=== PATIENT | female | born 1970 | race African-American/Black ===

== ENCOUNTER → 2021-01-24 00:10 | Outpatient (CLI) | payer OTHER, SELFPAY ==
[2021-01-24 20:45] LABS: SARS-CoV-2 RNA PCR Negative
== END ==
PROVIDERS: PCP Internal Medicine; Visit Provider Internal Medicine Gastroenterology
DX: Z01.812 Encounter for preprocedural laboratory examination (principal); Z20.822 Contact with and (suspected) exposure to COVID-19
CPT/HCPCS: C9803; U0003; U0005

== ENCOUNTER 2021-01-27 00:22 | Day surgery (SDC) | payer OTHER, SELFPAY ==
[2021-01-17 13:42] VITALS: BMI 30.4
[2021-01-27 12:17] VITALS: BP 147/99; PULSE 117; RESP 16; TEMP 36.8; O2SAT 99
[2021-01-27] MEDS: LACTATED RINGERS 1,000 ML 150 ML IV CONT (12:26)
--- NOTE | 2021-01-27 13:05 | WPDANESEPPF ---
Anes - Initial Pre Proc Eval Procedure: Operation Date: 01/27/21 13:00 Proposed Procedures p Esophagogastroduodenoscopy - Roddy Masters MD Date/Time: 01/27/21 13:05 Surgeon: Roddy Masters MD Pre Op Diagnosis: Gastritis Patient Data Age: 50 Gender: F Height: 5 ft 7 in Weight: 86.8 kg Last Vital Signs Temp 98.2 F 01/27/21 12:17 Pulse 117 H 01/27/21 12:17 Resp 16 01/27/21 12:17 BP 147/99 H 01/27/21 12:17 Pulse Ox 99 01/27/21 12:17 Allergies Allergy/AdvReac Type Severity Reaction Status Date / Time erythromycin base Allergy Severe ITCHING, Verified 01/27/21 12:03 HIVES propoxyphene Allergy Severe ITCHING, Verified 01/27/21 12:03 HIVES, LIVER PROBLEMS oxycodone AdvReac Mild ITCHING Verified 01/27/21 12:03 Home Medications Medication Instructions Recorded Confirmed Type omeprazole 20 mg capsule,delayed 20 mg PO DAILY #90 cap 02/08/20 01/27/21 Rx release tramadol 50 mg tablet 50 mg PO Q6H PRN #120 tablet 12/28/20 01/27/21 Rx glatiramer [Copaxone] 40 mg SUBCUT 3XW 01/17/21 01/27/21 History hydrochlorothiazide 25 mg PO DAILY 01/27/21 01/27/21 History Patient hx anesthesia problems: none Family hx anesthesia problems: none PMFSH Past Medical History Medical History (Updated 01/27/21 @ 13:04 by Toño Garza MD) Esophageal reflux disease Essential (primary) hypertension Pure hypercholesterolemia Family History Family History Mother Patient's mother is in good health Father Patient's father is in good health Social History Social History Smoking status: Never smoker Second hand tobacco smoke exposure: No Alcohol intake: current Alcohol use details: DRINKS RARELY Living arrangements: with family Gender identity (if verbalized by the patient): Female Spiritual care concerns: No Anes - Eval Final PreProcedure Day of Procedure 01/27/21 13:05 Patient weight: obese Heart: regular rate and rhythm Lungs: clear to auscultation Airway: Mallampati scale class II Neurological: alert and oriented Last oral intake: >/= 8 hours ASA classification: III Emergent: no Anesthetic plan: proceed Anesthesia type and monitoring: general GIVS and standard monitoring Informed Consent: The patient's anesthetic plan and its attendant risks and benefits were discussed with the patient/family/POA. Questions were solicited and answers provided to the satisfaction of the patient/family/POA.
--- NOTE | 2021-01-27 13:08 | PM.HPGS ---
History of Present Illness History of Present Illness Consent: Risks, benefits, and alternatives have been discussed and questions answered. Patient agrees to proceed with procedure. Chief complaint: Gastritis Narrative: Evette Reyes is a 50 year old female epigastric pain better with omeprazole but symptom not gone, never had EGD Review of Systems Constitutional: Constitutional: Denies headache(s) and Denies weakness Eyes: Eyes: Denies blurry vision ENT: Reports Normal hearing present, Denies headache(s) and Denies neck pain Cardiovascular: Cardiovascular: Denies chest pain and Denies dyspnea Respiratory: Respiratory: Denies dyspnea Gastrointestinal: Gastrointestinal: Reports no additional gastrointestinal complaints Genitourinary: Genitourinary: Denies dysuria Musculoskeletal: Musculoskeletal: Denies neck pain Integumentary/Breasts: Skin/Breast: Denies dry skin Neurologic: Reports Normal hearing present, Denies headache(s) and Denies weakness Psychiatric: Psychiatric: Denies anxiety Endocrine: Endocrine: Denies change in body appearance Hematologic/Lymphatic: Hematologic/Lymphatic: Denies easy bleeding Allergic/Immunologic: Allergic/Immunologic: Denies urticaria PMFSH Past Medical History Medical History (Updated 01/27/21 @ 13:08 by Roddy Masters MD) Esophageal reflux disease Essential (primary) hypertension Pure hypercholesterolemia Family History Family History Mother Patient's mother is in good health Father Patient's father is in good health Social History Social History Smoking status: Never smoker Second hand tobacco smoke exposure: No Alcohol intake: current Alcohol use details: DRINKS RARELY Living arrangements: with family Gender identity (if verbalized by the patient): Female Spiritual care concerns: No Meds Home Medications and Allergies Home Medications Medication Instructions Recorded Confirmed Type omeprazole 20 mg capsule,delayed 20 mg PO DAILY #90 cap 02/08/20 01/27/21 Rx release tramadol 50 mg tablet 50 mg PO Q6H PRN #120 tablet 12/28/20 01/27/21 Rx glatiramer [Copaxone] 40 mg SUBCUT 3XW 01/17/21 01/27/21 History hydrochlorothiazide 25 mg PO DAILY 01/27/21 01/27/21 History Allergies Allergy/AdvReac Type Severity Reaction Status Date / Time erythromycin base Allergy Severe ITCHING, Verified 01/27/21 12:03 HIVES propoxyphene Allergy Severe ITCHING, Verified 01/27/21 12:03 HIVES, LIVER PROBLEMS oxycodone AdvReac Mild ITCHING Verified 01/27/21 12:03 Vital Signs Vital Signs - 24 hr 01/27/21 12:17 Temperature 98.2 F Pulse Rate 117 H Respiratory Rate 16 Blood Pressure 147/99 H Pulse Oximetry 99 Exam Const: General: comfortable and no acute distress HENMT: General nose exam: Normal nares present Eyes: General: appearance normal, both eyes and all related structures Neck: Neck: no JVD Resp: Auscultation: clear to auscultation bilaterally Cardio: Rate: regular rate Rhythm: regular rhythm GI: Inspection: non-distended GI Palp: Yes Soft to palpation Skin: General skin exam: normal color Neuro: General: gait normal Speech: normal speech Extrem: General: normal to inspection Psych: Mental Status: mental status grossly normal Assessment and Plan Assessment and plan (1) Esophageal reflux disease: Code(s): K21.9 - Gastro-esophageal reflux disease without esophagitis Status: Acute Assessment and Plan: egd with bx, on ppi
[2021-01-27] MEDS: BENZOCAINE (*SP) 60 ML SPRAY CAN (HURRICAINE) 1 SPRAY MUCOUS MEM (13:13)
[2021-01-27 13:20] VITALS: BP 155/96; PULSE 98; RESP 16; O2SAT 96
[2021-01-27 13:30] VITALS: BP 138/100; PULSE 94; RESP 18; O2SAT 97
[2021-01-27 13:40] VITALS: BP 142/99; PULSE 92; RESP 18; O2SAT 100
== END 2021-01-27 14:05 | disposition home or self-care (01) ==
PROVIDERS: PCP Internal Medicine; Visit Provider Internal Medicine Gastroenterology
PROC: 0DJ08ZZ Inspection of Upper Intestinal Tract, Via Natural or Artificial Opening Endoscopic (ICD-10-PCS; CPT 43235; principal; 2021-01-27 13:00)
DX: K21.9 Gastro-esophageal reflux disease without esophagitis (principal); K44.9 Diaphragmatic hernia without obstruction or gangrene; K29.50 Unspecified chronic gastritis without bleeding; I10 Essential (primary) hypertension; E78.00 Pure hypercholesterolemia, unspecified; E66.9 Obesity, unspecified; Z68.30 Body mass index [BMI] 30.0-30.9, adult
CPT/HCPCS: 43239; 87081; 88305; C9803; J2704; J7120; U0003; U0005

== ENCOUNTER 2022-11-26 07:39 | Outpatient (NON) | payer OTHER, SELFPAY | END 2022-11-26 07:40 | disposition home or self-care (01) | LOC: ANHLAB 11-27 07:41 | PROVIDERS: PCP Internal Medicine; Visit Provider Internal Medicine Gastroenterology | DX: K29.60 Other gastritis without bleeding (principal) | CPT/HCPCS: 88305 ==

== ENCOUNTER 2022-11-26 11:56 | Day surgery (SDC) | payer OTHER, SELFPAY ==
[2022-11-05 11:17] VITALS: BMI 30.7
[2022-11-14 12:03] VITALS: BMI 30.4
--- NOTE | 2022-11-26 12:15 | WPDANESEPPF ---
Anes - Initial Pre Proc Eval Procedure: Operation Date: 11/26/22 14:00 Proposed Procedures p Esophagogastroduodenoscopy - Roddy Masters MD Date/Time: 11/26/22 12:15 Surgeon: Roddy Masters MD Pre Op Diagnosis: Gerd Patient Data Age: 51 Gender: F Height: 1.7 m Weight: 88 kg Allergies Allergy/AdvReac Type Severity Reaction Status Date / Time erythromycin base Allergy Severe ITCHING, Verified 11/26/22 13:04 HIVES propoxyphene Allergy Severe ITCHING, Verified 11/26/22 13:04 HIVES, LIVER PROBLEMS oxycodone AdvReac Mild ITCHING Verified 11/26/22 13:04 Home Medications Medication Instructions Recorded Confirmed Type cyanocobalamin (vitamin B-12) 500 500 mcg PO DAILY #90 tabs 02/23/22 11/26/22 Rx mcg tablet ofatumumab 20 mg/0.4 mL 20 mg subcut MONTHLY 02/23/22 11/26/22 History subcutaneous pen injector (Kesimpta Pen) omeprazole 20 mg capsule,delayed 20 mg PO BID 1 month #60 caps 05/15/22 11/26/22 Rx release sucralfate 100 mg/mL oral 1 g (10 mL) PO QID #1,200 mL 10/26/22 11/26/22 Rx suspension (Carafate) tramadol 50 mg tablet 50 mg PO Q6H PRN pain #120 tabs 11/05/22 11/26/22 Rx cholecalciferol (vitamin D3) 50 50 mcg PO DAILY 11/14/22 11/26/22 History mcg (2,000 unit) tablet (Vitamin D3) multivit with minerals-iron 18 1 tablet PO DAILY 11/14/22 11/26/22 History mg-folic ac 400 mcg-vit K 25 mcg tablet (Adults Multivitamin) Patient hx anesthesia problems: none Family hx anesthesia problems: none Results Review: All pre-operative results and documents have been reviewed as part of the pre-operative evaluation. [facility] Past Medical History Medical History (Updated 11/26/22 @ 12:17 by Gurwinder Vogel MD) Back pain Chronic narcotic use Depression Esophageal reflux disease Essential (primary) hypertension Multiple sclerosis DEEP (obstructive sleep apnea) Pure hypercholesterolemia Family History Family History Mother Patient's mother is in good health Father Patient's father is in good health Social History Social History (Updated 10/31/22 @ 14:45 by Eloy Rodriguez MA) Smoking status: Never smoker Second hand tobacco smoke exposure: No Alcohol intake: current Drinks per week: 0 Alcohol use details: OCCASIONAL DRINK ON A HOLIDAY Substance use: current Substance use type: marijuana Other substance usage details: RARE GUMMY FOR PAIN Lack of Transportation: No Lack of Food: Never True Current Housing: I Have Housing Concerned About Future Housing: No Difficulty Paying Gas/Electric Bills: No Difficulty Paying for Meds: No Currently Unemployed: No Education: Master's Degree or Higher Difficulty w/ Childcare or Family Care: No Living arrangements: with family Gender identity (if verbalized by the patient): Female Spiritual care concerns: No Anes - Eval Final PreProcedure Day of Procedure 11/26/22 12:15 Patient weight: obese Heart: regular rate and rhythm Lungs: clear to auscultation Airway: Mallampati scale class II Neurological: alert and oriented Last oral intake: >/= 8 hours ASA classification: III Emergent: no Anesthetic plan: proceed Anesthesia type and monitoring: general GIVS and standard monitoring Results Review: All pre-operative results and documents have been reviewed as part of the pre-operative evaluation. Informed Consent: The patient's anesthetic plan and its attendant risks and benefits were discussed with the patient/family/POA. Questions were solicited and answers provided to the satisfaction of the patient/family/POA.
[2022-11-26 13:31] VITALS: BP 150/79; PULSE 79; RESP 20; TEMP 36.6; O2SAT 100
[2022-11-26] MEDS: LACTATED RINGERS 1,000 ML 150 ML IV CONT (13:32)
--- NOTE | 2022-11-26 14:12 | PM.HPGS ---
History of Present Illness History of Present Illness Consent: Risks, benefits, and alternatives have been discussed and questions answered. Patient agrees to proceed with procedure. Chief complaint: Gerd Narrative: Evette Reyes is a 51 year old female with erosive gastritis 2020, using omeprazole as needed but lately more consistently (she has been having more dyspepsia). Review of Systems Constitutional: Constitutional: Denies headache(s) and Denies weakness Eyes: Eyes: Denies blurry vision ENT: Reports Normal hearing present, Denies headache(s) and Denies neck pain Cardiovascular: Cardiovascular: Denies chest pain and Denies dyspnea Respiratory: Respiratory: Denies dyspnea Gastrointestinal: Gastrointestinal: Reports no additional gastrointestinal complaints Genitourinary: Genitourinary: Denies dysuria Musculoskeletal: Musculoskeletal: Denies neck pain Integumentary/Breasts: Skin/Breast: Denies dry skin Neurologic: Reports Normal hearing present, Denies headache(s) and Denies weakness Psychiatric: Psychiatric: Denies anxiety Endocrine: Endocrine: Denies change in body appearance Hematologic/Lymphatic: Hematologic/Lymphatic: Denies easy bleeding Allergic/Immunologic: Allergic/Immunologic: Denies urticaria PMFSH Past Medical History Medical History (Updated 11/26/22 @ 14:14 by Roddy Masters MD) Back pain Chronic narcotic use Colon cancer screening Depression Erosive gastritis Esophageal reflux disease Essential (primary) hypertension Multiple sclerosis DEEP (obstructive sleep apnea) Pure hypercholesterolemia Family History Family History Mother Patient's mother is in good health Father Patient's father is in good health Social History Social History (Updated 10/31/22 @ 14:45 by Eloy Rodriguez MA) Smoking status: Never smoker Second hand tobacco smoke exposure: No Alcohol intake: current Drinks per week: 0 Alcohol use details: OCCASIONAL DRINK ON A HOLIDAY Substance use: current Substance use type: marijuana Other substance usage details: RARE GUMMY FOR PAIN Lack of Transportation: No Lack of Food: Never True Current Housing: I Have Housing Concerned About Future Housing: No Difficulty Paying Gas/Electric Bills: No Difficulty Paying for Meds: No Currently Unemployed: No Education: Master's Degree or Higher Difficulty w/ Childcare or Family Care: No Living arrangements: with family Gender identity (if verbalized by the patient): Female Spiritual care concerns: No Meds Home Medications and Allergies Home Medications Medication Instructions Recorded Confirmed Type cyanocobalamin (vitamin B-12) 500 500 mcg PO DAILY #90 tabs 02/23/22 11/26/22 Rx mcg tablet ofatumumab 20 mg/0.4 mL 20 mg subcut MONTHLY 02/23/22 11/26/22 History subcutaneous pen injector (Kesimpta Pen) omeprazole 20 mg capsule,delayed 20 mg PO BID 1 month #60 caps 05/15/22 11/26/22 Rx release sucralfate 100 mg/mL oral 1 g (10 mL) PO QID #1,200 mL 10/26/22 11/26/22 Rx suspension (Carafate) tramadol 50 mg tablet 50 mg PO Q6H PRN pain #120 tabs 11/05/22 11/26/22 Rx cholecalciferol (vitamin D3) 50 50 mcg PO DAILY 11/14/22 11/26/22 History mcg (2,000 unit) tablet (Vitamin D3) multivit with minerals-iron 18 1 tablet PO DAILY 11/14/22 11/26/22 History mg-folic ac 400 mcg-vit K 25 mcg tablet (Adults Multivitamin) Allergies Allergy/AdvReac Type Severity Reaction Status Date / Time erythromycin base Allergy Severe ITCHING, Verified 11/26/22 13:04 HIVES propoxyphene Allergy Severe ITCHING, Verified 11/26/22 13:04 HIVES, LIVER PROBLEMS oxycodone AdvReac Mild ITCHING Verified 11/26/22 13:04 Vital Signs Vital Signs - 24 hr 11/26/22 13:31 Temperature 97.9 F Pulse Rate 79 Respiratory Rate 20 Blood Pressure 150/79 H Pulse Oximetry 100 Oxygen Delive
[2022-11-26 14:32] VITALS: BP 165/102; PULSE 92; RESP 16; O2SAT 100
[2022-11-26 14:42] VITALS: BP 159/91; PULSE 70; RESP 16; O2SAT 95
[2022-11-26 14:52] VITALS: BP 155/88; PULSE 74; RESP 20; O2SAT 99
--- NOTE | 2022-11-26 15:15 | WPDANESPN ---
Anes - Prog Note Post-Op Date/Time: 11/26/22 15:15 Cardiovascular status: normal Respiratory status: normal Airway patency: baseline Mental status: baseline Post-Op hydration status: normal Vital Signs: Last Vital Signs Temp 36.6 C 11/26/22 13:31 Pulse 79 11/26/22 13:31 Resp 20 11/26/22 13:31 BP 150/79 H 11/26/22 13:31 Pulse Ox 100 11/26/22 13:31 O2 Del Method Room Air 11/26/22 13:31 Pain Score (VAS): 0 I/O: Intake & Output 11/25/22 11/26/22 11/26/22 23:59 07:59 15:59 Intake Total 200 Balance 200 Post-procedural complaints: none Patient Feedback: Patient satisfied with anesthetic care.
== END 2022-11-26 15:16 | disposition home or self-care (01) ==
PROVIDERS: PCP Internal Medicine; Visit Provider Internal Medicine Gastroenterology
PROC: 0DJ08ZZ Inspection of Upper Intestinal Tract, Via Natural or Artificial Opening Endoscopic (ICD-10-PCS; CPT 43235; principal; 2022-11-26 14:00)
DX: K21.9 Gastro-esophageal reflux disease without esophagitis (principal)
CPT/HCPCS: 43239